=== PATIENT | female | born 1980 | race Caucasian/White ===

== ENCOUNTER 2023-10-14 12:24 | Emergency (ER) | payer OTHER ==
[~2023-10-14] VITALS: Ht 162.6 cm; Wt 63.0 kg
[~2023-10-14 12:24] MED LIST: OMEP20TA23 MT
[2023-10-14 12:29] VITALS: O2SAT 99
[2023-10-14] MEDS ORDERED: BO1 TP (14:09)
[2023-10-14] MEDS: BACITRACIN ZINC OINT UDPKT TOP ONE (15:03)
[2023-10-14 15:07] VITALS: BP 127/67; PULSE 68; RESP 17; TEMP 98.5
[2023-10-14] MEDS: TETANUS, DIPHTHERIA, PERTUSSIS VAC/PF 0.5ML (>10YR OLD) IM ONE (15:21)
== END 2023-10-14 15:22 | disposition home or self-care (01) ==
LOC: ER 13:14
DX: T23.201A Burn of second degree of right hand, unspecified site, initial encounter (principal); X19.XXXA Contact with other heat and hot substances, initial encounter; Y93.89 Activity, other specified; Y92.89 Other specified places as the place of occurrence of the external cause; Y99.8 Other external cause status
CPT/HCPCS: 90715; 16020; 90471; 99283; Z7610 ×4